=== PATIENT | female | born 1990 | race American Indian/Alaskan Native ===

== ENCOUNTER 2019-12-21 10:43 | Emergency (ER) | payer BC ==
[~2019-12-21] VITALS: Ht 165.1 cm; Wt 62.6 kg
[2019-12-21 10:53] VITALS: Ht 165.1 cm; Wt 62.6 kg
[2019-12-21 11:28] LABS: BASOPHIL % 0.5 % (0-2); PLATELET COUNT 227 x10^3mcL (130-400); RED CELL DISTRIBUTION WIDTH 13.4 % (11.5-14.5)
[2019-12-21 12:44] VITALS: BP 107/62
== END 2019-12-21 12:44 | disposition home or self-care (01) ==
LOC: ED 10:43
PROVIDERS: Emergency Medicine
DX: K64.8 Other hemorrhoids (principal)
CPT/HCPCS: 36415